=== PATIENT | female | born 1960 | race Caucasian/White ===

== ENCOUNTER 2016-02-25 06:57 | Day surgery (SDC) | payer OTHER ==
[~2016-02-25] VITALS: Ht 154.9 cm; Wt 81.5 kg
[~2016-02-25 06:57] MED LIST: AMLO2.5T78 PO; BENA20TA48 PO; RANI300T PO; ULT50 PO
[2016-02-25 08:00] VITALS: Ht 154.9 cm; Wt 81.5 kg
[2016-02-25 08:40] VITALS: BP 140/75; PULSE 85; RESP 15
[2016-02-25] MEDS ORDERED: FENTAnyl 50 MCG/ML VIAL ONE (09:09)
[2016-02-25] MEDS ORDERED: MIDAZOLAM 1 MG/ML 2 ML INJ ONE ×2 (09:09)
[2016-02-25 09:17] VITALS: BP 133/76; PULSE 82; RESP 16
[2016-02-25 10:02] VITALS: BP 130/80; PULSE 80; RESP 16
--- NOTE | 2016-02-25 17:56 | GILP ---
DATE OF PROCEDURE: NAME OF PROCEDURE: Colonoscopy. SURGEON: Marcello Monroy MD PREOPERATIVE DIAGNOSIS: Screening colonoscopy. POSTOPERATIVE DIAGNOSES: 1. Colonoscopy all the way to the cecum. 2. Mild diverticulosis of the colon. 3. Mild melanosis coli. 4. Small internal hemorrhoids. 5. No colon neoplasm was identified. INDICATION FOR THE PROCEDURE: Ms. Flora Escobedo is a 56-year-old female patient who was scheduled for screening colonoscopy. The procedure and possible complications are well explained to the patient, she understood and conse nted to the procedure. DESCRIPTION OF PROCEDURE: Under the influence of fentanyl and Versed, the colonoscope was carefully introduced in the rectum and under direct vision, it was advanced all the way to the cecum. FINDINGS: The patient had mild diverticulosis of the colon. She also had mild melanosis coli and s mall internal hemorrhoids. No colon neoplasm was identified. She tolerated the procedure very well and there was no complication from the procedure. At the end of the procedures, she was awake with stable vital signs and she was discharged home to the care of her family. IMPRESSION: 1. Colonoscopy all the way to the cecum. 2. Mild diverticulosis of the colon. 3. Mild melanosis coli. 4. Small internal hemorrhoids. PLAN: 1. High fiber diet. 2. Next screening colonoscopy in 10 years. Dictated By: MARCELLO REICH/LUCA Conf#: [id number] DID#: [id number]
== END 2016-02-25 09:28 | disposition home or self-care (01) ==
LOC: GIL 06:57
PROVIDERS: ATTEND Internal Medicine Gastroenterology
DX: Z12.11 Encounter for screening for malignant neoplasm of colon (principal); K57.90 Diverticulosis of intestine, part unspecified, without perforation or abscess without bleeding; K64.8 Other hemorrhoids
CPT/HCPCS: 45378; J2250; J3010; Z7610